=== PATIENT | female | born 1950 | race Caucasian/White ===

== ENCOUNTER 2018-06-18 07:21 | Emergency (ER) | payer MEDICARE ==
[~2018-06-18] VITALS: Ht 157.5 cm; Wt 68.2 kg
[2018-06-18 07:31] VITALS: BP 156/68; PULSE 94; Ht 157.5 cm; Wt 68.2 kg
--- NOTE | 2018-06-18 12:50 | ERD ---
ER Documentation Chief Complaint Chief Complaint Rt foot pain HPI 67-year-old female who is homeless, presents for right foot pain. States she has been having pain for many years, no history of recent trauma. Also request refills of her diabetic medication, she takes metformin and Lantus, she cannot recall her metformin dose. She has not had fever, no foot ulcers, ROS All systems reviewed and are negative except as per history of present illness. Medications Home Meds Active Scripts Insulin Glargine* (Lantus*) 100 Unit/Ml Soln, 1 UNIT SC BID, #1 VIAL 2 Refills Prov:EVA SIDDIQUI MD 06/18/18 Metformin* (Glucophage*) 500 Mg Tab, 500 MG PO BID, #20 TAB Prov:EVA SIDDIQUI MD 06/18/18 Allergies Allergies: Coded Allergies: No Known Allergy (Unverified , 06/18/18) PMhx/Soc History of Surgery: Yes ( '77, Tubal '80) Anesthesia Reaction: No Hx Neurological Disorder: No Hx Respiratory Disorders: No Hx Cardiac Disorders: Yes (CAD stent 6 yr ago) Hx Psychiatric Problems: No Hx Miscellaneous Medical Probl: Yes (DM, neuropathy) Hx Alcohol Use: No Hx Substance Use: No Hx Tobacco Use: Yes (1/2 pkg daily) Smoking Status: Current every day smoker Physical Exam Vitals Vital Signs Date Temp Pulse Resp B/P (MAP) Pulse Ox O2 O2 Flow FiO2 Time Delivery Rate 06/18/18 94 156/68 100 07:31 (97) 06/18/18 94 156/68 100 Room Air 07:31 (97) Physical Exam Const: No acute distress, disheveled appearing Head: Atraumatic Eyes: Normal Conjunctiva ENT: Normal External Ears, Nose and Mouth. Neck: Full range of motion. No meningismus. Resp: Clear to auscultation bilaterally Cardio: Regular rate and rhythm, no murmurs Abd: Soft, non tender, non distended. Normal bowel sounds Skin: No petechiae or rashes Back: No midline or flank tenderness Ext: No cyanosis, or edema. Tenderness over her great toe, there are no noted foot ulcers, cap refill less than 2 seconds, sensation intact light touch Neur: Awake and alert Psych: Normal Mood and Affect Results 24 hrs Laboratory Tests Test 06/18/18 08:11 Bedside Glucose 302 mg/dL [facility] 67-year-old female presents with foot pain and request for medication refill. No evidence of a diabetic foot ulcer, x-ray was negative for fracture, and no signs or symptoms of infection. Patient blood glucose noted to be elevated, she is otherwise well-appearing, with no Kussmaul breathing, and no signs or symptoms of DKA clinically. Social work was consulted given homelessness, and patient was by resources, as well as refill of Lantus and metformin, at discharge patient was in no acute distress. Departure Diagnosis: Primary Impression: Foot pain Laterality: right Qualified Codes: M79.671 - Pain in right foot Additional Impression: Diabetes Diabetes mellitus type: type 2 Diabetes mellitus emt intermediate insulin use: unspecified residential insulin use status Diabetes mellitus complication status: with unspecified complications Qualified Codes: E11.8 - Type 2 diabetes mellitus with unspecified complications Condition: Stable EVA SIDDIQUI MD Jun 18, 2018 12:49
[2018-06-18] MEDS ORDERED: METF-849 PO (12:53)
[2018-06-18] MEDS ORDERED: LANT3I SC (12:53)
== END 2018-06-18 13:34 | disposition home or self-care (01) ==
LOC: E/R 07:21
DX: M79.671 Pain in right foot (principal); E11.8 Type 2 diabetes mellitus with unspecified complications; I25.10 Atherosclerotic heart disease of native coronary artery without angina pectoris; F17.210 Nicotine dependence, cigarettes, uncomplicated; Z79.4 Long term (current) use of insulin; Z98.61 Coronary angioplasty status
CPT/HCPCS: 73630; 82962

== ENCOUNTER 2018-06-20 06:51 | Emergency (ER) | payer MEDICARE ==
[~2018-06-20] VITALS: Ht 167.6 cm; Wt 65.0 kg
[~2018-06-20 06:51] MED LIST: LANT3I SC; METF-849 PO
[2018-06-20 07:27] VITALS: BP 145/63; PULSE 84; RESP 20; Ht 167.6 cm; Wt 65.0 kg
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
[2018-06-20] MEDS ORDERED: HYDR-4011 PO (10:58)
[2018-06-20] MEDS ORDERED: HYDROCODONE/APAP (5/325) TAB PO ONE (11:00)
== END 2018-06-20 10:45 | disposition home or self-care (01) ==
LOC: E/R 06:51
DX: M79.673 Pain in unspecified foot (principal); E11.9 Type 2 diabetes mellitus without complications; I25.10 Atherosclerotic heart disease of native coronary artery without angina pectoris; F17.210 Nicotine dependence, cigarettes, uncomplicated; Z79.4 Long term (current) use of insulin; Z98.61 Coronary angioplasty status
CPT/HCPCS: 99283

== ENCOUNTER 2018-06-22 11:38 | Emergency (ER) | payer MEDICARE ==
[~2018-06-22] VITALS: Wt 61.3 kg
[~2018-06-22 11:38] MED LIST changes: +HYDR-4011 PO
[2018-06-22] MEDS ORDERED: SOD CHLORIDE 0.9% 1,000 ML IV STA (11:51)
[2018-06-22] MEDS ORDERED: INSULIN REGULAR, HUMAN 100 UNIT/1 ML 3ML VIAL SC ONE (13:30)
[2018-06-22] MEDS ORDERED: METF-849 PO (15:03)
[2018-06-22] MEDS ORDERED: LANT3I SC (15:03)
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
[2018-06-22 15:25] VITALS: BP 155/89; PULSE 90; RESP 18
== END 2018-06-22 18:53 | disposition home or self-care (01) ==
LOC: E/R 11:38
DX: E11.65 Type 2 diabetes mellitus with hyperglycemia (principal); R19.7 Diarrhea, unspecified; I25.10 Atherosclerotic heart disease of native coronary artery without angina pectoris; Z79.4 Long term (current) use of insulin; Z87.891 Personal history of nicotine dependence; Z98.61 Coronary angioplasty status
CPT/HCPCS: 80053; 82962; 83690; 85025; 96372; 99284; J1815; J7030